=== PATIENT | female | born 1985 ===

== ENCOUNTER 2018-06-01 01:02 | Emergency (ER) | payer SELFPAY ==
[2018-06-01 01:03] VITALS: BMI 23.0
--- NOTE | 2018-06-01 02:46 | C.PDOC ---
History Of Present Illness 32 year old female with a Hx of chronic ETOH abuse presents to the ER requesting detox from ETOH. Patient states she feels tired of drinking and wants a fresh start, she was admitted into detox 2 years ago. Denies medical complaints at this time. Time Seen by Provider: 06/01/18 01:34 Chief Complaint (Nursing): Substance Abuse History Per: Patient History/Exam Limitations: no limitations Onset/Duration Of Symptoms: Hrs Current Symptoms Are (Timing): Still Present Suicide/Self Injury Attempted (Context): None Modifying Factor(s): Alcohol Associated Symptoms: denies: Depression, Suicidal Thoughts Involuntary Hold By: None Recent travel outside of the [place]: No Past Medical History Reviewed: Historical Data, Nursing Documentation, Vital Signs Vital Signs: Last Vital Signs Temp 98.6 F 06/01/18 04:04 Pulse 70 06/01/18 05:58 Resp 16 06/01/18 05:58 BP 109/80 06/01/18 05:58 Pulse Ox 96 06/01/18 05:58 - Medical History PMH: Denies: Diabetes, Hepatitis, HIV, HTN, Seizures, Sexually Transmitted Disease - [facility] Procedures ALCOHOL DETOXIFICATION (05/02/13) Family History: States: Unknown Family Hx - Social History Hx Tobacco Use: Yes Hx Alcohol Use: Yes Hx Substance Use: No Review Of Systems Constitutional: Negative for: Fever, Chills Cardiovascular: Negative for: Chest Pain, Palpitations Respiratory: Negative for: Cough, Shortness of Breath Gastrointestinal: Negative for: Nausea, Vomiting Physical Exam - Physical Exam Appears: Non-toxic, Other (Strong ETOH on breath) Skin: Normal Color, Warm, Dry Head: Atraumatic, Normacephalic Eye(s): bilateral: Normal Inspection Oral Mucosa: Moist Chest: Symmetrical, No Tenderness Cardiovascular: Rhythm Regular Respiratory: Normal Breath Sounds, No Rales, No Rhonchi, No Wheezing Gastrointestinal/Abdominal: Soft, No Tenderness Neurological/Psych: Oriented x3, Normal Speech ED Course And Treatment O2 Sat by Pulse Oximetry: 97 (Room air) Pulse Ox Interpretation: Normal Progress Note: Patient was seen and evaluated by crisis who states there are no detox beds available, patient was given information on how to become prescreen and list of other detox sites in the area. Pt is AAOx3 and is ambulatory with steady gait Disposition - Disposition Referrals: [facility] [Outside] Disposition: HOME/ ROUTINE Disposition Time: 06:39 Condition: STABLE Additional Instructions: Please follow up in clinic Return to ER if worse Instructions: Alcohol Abuse and Alcoholism (DC) Forms: [facility] (Bulgarian) - Clinical Impression Clinical Impression: Alcohol abuse - PA / UNDER BASTER / Resident Statement MD/DO has reviewed & agrees with the documentation as recorded. - Scribe Statement The provider has reviewed the documentation as recorded by the Scribe Bharath Mcmahon All medical record entries made by the Scribe were at my direction and personally dictated by me. I have reviewed the chart and agree that the record accurately reflects my personal performance of the history, physical exam, medical decision making, and the department course for this patient. I have also personally directed, reviewed, and agree with the discharge instructions and disposition.
[2018-06-01 04:05] VITALS: TEMP 98.6
[2018-06-01 07:11] VITALS: BP 101/65; PULSE 73; RESP 14; O2SAT 96
== END 2018-06-01 07:12 | disposition home or self-care (01) ==
LOC: C.ER 01:02
DX: F10.10 Alcohol abuse, uncomplicated (principal); Z72.0 Tobacco use